=== PATIENT | female | born 1980 | race Caucasian/White ===

== ENCOUNTER 2019-11-26 | Emergency (ER) | payer SELFPAY ==
[2019-11-26] MEDS ORDERED: IBUPROFEN600 MG PO (22:19)
== END 2019-11-26 23:00 | disposition home or self-care (01) | DRG 581 ==
PROC: 0HQRXZZ Repair Toe Nail, External Approach (ICD-10-PCS; principal; 2019-11-26)
DX: S91.201A Unspecified open wound of right great toe with damage to nail, initial encounter (principal); S01.81XA Laceration without foreign body of other part of head, initial encounter; S80.212A Abrasion, left knee, initial encounter; S80.211A Abrasion, right knee, initial encounter; S70.12XA Contusion of left thigh, initial encounter; V93.32XA Fall on board fishing boat, initial encounter; F17.210 Nicotine dependence, cigarettes, uncomplicated